=== PATIENT | male | born 1985 | race African-American/Black ===

== ENCOUNTER 2021-02-17 19:52 | Emergency (ER) | payer MEDICAID ==
[~2021-02-17] VITALS: Ht 175.3 cm; Wt 81.6 kg
[2021-02-17 20:00] VITALS: BP_SYST 141
--- NOTE | 2021-02-17 20:13 | NUR ---
Patient to ER bed H1 to gown for evaluation. Side rails up. Report given to LANI OLMOS.
--- NOTE | 2021-02-17 20:20 | NUR ---
Patient BIB by family from home. C/O left knee pain x today. Patient reported, S/P played basketball today, left knee pain. A/O,X4, left knee pain, pain rate 9/10.
--- NOTE | 2021-02-17 20:24 | NUR ---
ER at bedside examining patient.
[2021-02-17] MEDS ORDERED: KETOROLAC TROMETHAMINE 60 MG/2 ML VIAL IM ONE (20:45)
--- NOTE | 2021-02-17 20:50 | NUR ---
X-ray at bedside.
[2021-02-17] MEDS ORDERED: IBUP-1971 PO (21:17)
[2021-02-17 21:25] VITALS: BP_SYST 141
--- NOTE | 2021-02-17 21:25 | NUR ---
Patient given written and verbal discharge instructions and verbalizes understanding. ER MD discussed with patient the results and treatment provided. Patient in stable condition. ID arm band removed. Rx of Ibuprofen given. Patient educated on pain management and to follow up with PMD. Pain Scale 3/10. Opportunity for questions provided and answered. Medication side effect fact sheet provided.
== END 2021-02-17 21:25 | disposition home or self-care (01) ==
LOC: SED 19:52
DX: S83.92XA Sprain of unspecified site of left knee, initial encounter (principal); W18.39XA Other fall on same level, initial encounter; Y93.67 Activity, basketball; Y92.89 Other specified places as the place of occurrence of the external cause; Y99.8 Other external cause status
CPT/HCPCS: 29505; 73564; 96372; 99283; J1885